=== PATIENT | female | born 1955 | race Native Hawaiian/Other Pacific Islander ===

== ENCOUNTER 2017-05-31 14:28 | Inpatient (IN) | payer BC ==
[~2017-05-31] VITALS: Ht 162.6 cm; Wt 77.8 kg
[2017-05-31] VITALS (8 sets, daily range): BP systolic 130–143; BP diastolic 60–76; TEMP 98.7–99.9; Ht 162.6 cm; Wt 77.8 kg
[2017-05-31 15:57] LABS: POTASSIUM 3.6 mmol/L (3.6-5.2); SODIUM 135 mmol/L (136-145)
[2017-05-31 16:11] LABS: PLATELET COUNT 171 K/uL (152-353)
--- NOTE | 2017-05-31 20:15 | NUR ---
RCD PT FROM ER VIA W/C AWAKE ALERT IV 20G LFA CHANGED PLACED IN BED INSTRUCTED TO COLLECT SPUTUM LUNGS CLEAR AT THIS TIME O2 AT 2L HOB ELEVATED 45 FAMILY AT BEDSIDE.DR CRUZ TO SEE PT.
--- NOTE | 2017-05-31 21:30 | NUR ---
UP TO COMMODE VOIDED RESP EVEN/UNLABORED BACK TO BED RESTING
--- NOTE | 2017-05-31 22:30 | NUR ---
RESTING IN BED RESP EVEN UNLABORED O2 SAT 100% EYES CLOSED MONITOR SR
[2017-06-01] VITALS: BP 134/67; TEMP 98
--- NOTE | 2017-06-01 | NUR ---
STARTED RESP TX ALERT WHEN ROUSED EVE PROCEDURE NO COUGHING OR WHEEZING NOTED
[2017-06-01 01:00] VITALS: BP 141/81
[2017-06-01 04:00] VITALS: BP 126/67; TEMP 984
--- NOTE | 2017-06-01 04:00 | NUR ---
UP TO COMMODE VOIDED 400CC BEGAN WHEEZING O2 IN PLACE BACK TO BED RT GIVEN SPUTUM SPECIMEN TO LAB "FEELING MUCH BETTER".
--- NOTE | 2017-06-01 05:00 | NUR ---
AWAKE WATCHING TV "I FEEL SO MUCH BETTER" MONITOR SR
--- NOTE | 2017-06-01 05:46 | NUR ---
BLOOD DRAWN TO LAB EVE PROCEDURE RESTING.
[2017-06-01 06:18] LABS: POTASSIUM 3.9 mmol/L (3.6-5.2); SODIUM 139 mmol/L (136-145)
[2017-06-01 06:30] LABS: PLATELET COUNT 165 K/uL (152-353)
--- NOTE | 2017-06-01 08:00 | NUR ---
PT EATING BREAKFAST
--- NOTE | 2017-06-01 08:30 | NUR ---
PT LAUGHING AND TALKING WITH HOUSEKEEPING
[2017-06-01] MEDS ORDERED: LEVO0.0723 PO (10:21)
[2017-06-01] MEDS ORDERED: BRIMONIDINE0.2 % OP (10:23)
[2017-06-01] MEDS ORDERED: OMEP20CA PO (10:25)
[2017-06-01] MEDS ORDERED: EVISTA60 MG PO (10:26)
[2017-06-01] MEDS ORDERED: MECLIZINE25 MG PO (10:28)
[2017-06-01] MEDS ORDERED: MONT10TA PO (10:29)
[2017-06-01 13:00] VITALS: BP 133/63; TEMP 98.3
--- NOTE | 2017-06-01 15:20 | NUR ---
DR CRUZ AT
[2017-06-01 17:00] VITALS: BP 120/65
--- NOTE | 2017-06-01 17:15 | NUR ---
PT TRANSFERRED TO MED SURG RM 1100
--- NOTE | 2017-06-01 18:06 | NUR ---
1700 PT TRANSFERRED FROM PCU TO ROOM 1109 VIA WC. PT ALERT AND ORIENTED., NO ACUTE DISTRESS NOTED. PT ASSISTED TO BED. WILL CON'T TO MONITOR
[2017-06-01 20:21] VITALS: BP 102/53; TEMP 98.7
[2017-06-02] VITALS: BP 113/54; TEMP 98
[2017-06-02 04:00] VITALS: BP 113/52; TEMP 99
[2017-06-02 05:23] LABS: PLATELET COUNT 179 K/uL (152-353)
[2017-06-02 05:25] LABS: POTASSIUM 2.8 mmol/L (3.6-5.2); SODIUM 134 mmol/L (136-145)
[2017-06-02 08:00] VITALS: BP 112/67; TEMP 98
[2017-06-02 12:00] VITALS: BP 106/55; TEMP 97.7
[2017-06-02 16:00] VITALS: BP 130/62; TEMP 98.1
[2017-06-02 20:00] VITALS: BP 145/71; TEMP 98.7
[2017-06-03] VITALS: BP 129/70; TEMP 98.5
[2017-06-03 04:00] VITALS: BP 119/73; TEMP 98.6
[2017-06-03 05:54] LABS: PLATELET COUNT 191 K/uL (152-353)
[2017-06-03 06:24] LABS: POTASSIUM 3.3 mmol/L (3.6-5.2); SODIUM 135 mmol/L (136-145)
[2017-06-03 08:00] VITALS: BP 125/68; TEMP 97.6
[2017-06-03 12:00] VITALS: BP 118/72; TEMP 97.8
--- NOTE | 2017-06-03 14:05 | NUR ---
IV D/C'D. PRESCRIPTION GIVEN. PT INSTRUCTED TO MAKE FU WITH PCP IN ONE WEEK. PT HAS NO FUTHER QUESTIONS. PT AMBULATED OUT AT THIS TIME WITH NO PROBLEMS NOTED.
== END 2017-06-03 11:09 | disposition home or self-care (01) | DRG 203 ==
LOC: ED 14:28 → ICU 18:00 → MED/SURG 18:00 → ICU 06-01 17:00 → MED/SURG 06-01 17:00
DX: J45.901 Unspecified asthma with (acute) exacerbation (principal); J20.9 Acute bronchitis, unspecified; F41.8 Other specified anxiety disorders; R06.02 Shortness of breath; R06.09 Other forms of dyspnea; K59.09 Other constipation; R05 Cough
CPT/HCPCS: 36415; 36600; 80048; 80053; 80307; 81000; 82550; 82805; 84484; 85027; 87070; 87205; 94640; 94664; 94760; 96367; 96374; 99284; J0696; J2930

== ENCOUNTER 2017-06-04 09:43 | Emergency (ER) | payer BC ==
[~2017-06-04] VITALS: Ht 160 cm; Wt 79.4 kg
[~2017-06-04 09:43] MED LIST: BRIMONIDINE0.2 % OP; EVISTA60 MG PO; LEVO0.0723 PO; MECLIZINE25 MG PO; MONT10TA PO; OMEP20CA PO
[2017-06-04 10:58] LABS: PLATELET COUNT 219 K/uL (152-353)
[2017-06-04 11:04] LABS: POTASSIUM 3.1 mmol/L (3.6-5.2); SODIUM 131 mmol/L (136-145)
[2017-06-04 14:45] VITALS: TEMP 98.4
[2017-06-04 15:10] VITALS: BP 137/79
== END 2017-06-04 15:10 ==
LOC: ED 09:43
PROVIDERS: Specialist
DX: R22.0 Localized swelling, mass and lump, head (principal)
CPT/HCPCS: 36415; 80048; 85027; 85651; 87040; 96365; 96368; 96374; 99285; J1100; J2543; J3370; Q9963

== ENCOUNTER 2017-06-04 15:12 | Outpatient (CLI) | payer BC | END 2017-06-04 16:45 | disposition short-term general hospital (02) | LOC: AMB 15:12 | DX: R22.0 Localized swelling, mass and lump, head (principal) | CPT/HCPCS: A0425; A0429 ==

== ENCOUNTER 2018-09-28 13:45 | Outpatient (CLI) | payer BC | END 2018-09-28 21:09 | disposition home or self-care (01) | LOC: LABW 13:45 | DX: B35.1 Tinea unguium (principal) | CPT/HCPCS: 36415; 84450; 84460 ==

== ENCOUNTER 2018-11-06 15:09 | Outpatient (CLI) | payer BC | END 2018-11-06 20:04 | disposition home or self-care (01) | LOC: LABW 15:09 | DX: B35.1 Tinea unguium (principal) | CPT/HCPCS: 36415; 84450; 84460 ==

== ENCOUNTER 2020-07-02 13:24 | Outpatient (CLI) | payer BC | END 2020-07-02 21:52 | disposition home or self-care (01) | LOC: CT 13:24 | PROVIDERS: ATTEND Internal Medicine | DX: J01.00 Acute maxillary sinusitis, unspecified (principal) | CPT/HCPCS: 36415; 82565; 84520; Q9963 ==

== ENCOUNTER 2021-10-21 13:34 | Emergency (ER) | payer BC ==
[~2021-10-21] VITALS: Ht 162.6 cm; Wt 73.5 kg
[2021-10-21 13:34] VITALS: TEMP 98.6
[2021-10-21 15:30] VITALS: BP 130/67
== END 2021-10-21 15:46 | disposition home or self-care (01) ==
LOC: ED 13:34
DX: S40.012A Contusion of left shoulder, initial encounter (principal); V49.40XA Driver injured in collision with unspecified motor vehicles in traffic accident, initial encounter; Y92.89 Other specified places as the place of occurrence of the external cause
CPT/HCPCS: 93005; 96372; 99283

== ENCOUNTER 2021-10-21 15:00 | Outpatient (CLI) | payer BC ==
[2021-10-21 15:17] LABS: PLATELET COUNT 190 K/uL (152-353)
[2021-10-21 15:45] LABS: POTASSIUM 2.5 mmol/L (3.6-5.2)
== END 2021-10-21 19:21 | disposition home or self-care (01) ==
LOC: LAB 15:00
PROVIDERS: ATTEND Internal Medicine
DX: G62.89 Other specified polyneuropathies (principal); D64.9 Anemia, unspecified; Z79.899 Other long term (current) drug therapy
CPT/HCPCS: 80053; 80061; 82607; 82728; 83540; 83550; 83735; 84439; 84443; 85027; 86038

== ENCOUNTER 2021-10-22 13:21 | Emergency (ER) | payer OTHER, BC ==
[~2021-10-22] VITALS: Ht 162.6 cm; Wt 73.5 kg
[2021-10-22 13:49] VITALS: BP 124/76; TEMP 98.1
== END 2021-10-22 15:06 | disposition home or self-care (01) ==
LOC: ED 13:21
DX: R51.9 Headache, unspecified (principal); F41.8 Other specified anxiety disorders; V53.5XXD Driver of pick-up truck or van injured in collision with car, pick-up truck or van in traffic accident, subsequent encounter; Y92.89 Other specified places as the place of occurrence of the external cause
CPT/HCPCS: 99283

== ENCOUNTER 2021-10-28 16:49 | Outpatient (CLI) | payer BC ==
[2021-10-28 17:52] LABS: POTASSIUM 3.5 mmol/L (3.6-5.2)
== END 2021-10-28 19:15 | disposition home or self-care (01) ==
LOC: LAB 16:49
PROVIDERS: ATTEND Internal Medicine
DX: E87.6 Hypokalemia (principal); G62.89 Other specified polyneuropathies; Z79.899 Other long term (current) drug therapy
CPT/HCPCS: 80053; 83036; 83735